=== PATIENT | female | born 1975 | race Caucasian/White ===

== ENCOUNTER → 2016-07-12 | Outpatient (CLI) | payer BC | LOC: FIMAGING 10:41 | PROVIDERS: ATTEND Obstetrics & Gynecology | DX: N83.01 Follicular cyst of right ovary (principal) ==

== ENCOUNTER → 2016-08-10 | Day surgery (SDC) | payer BC | END | disposition home or self-care (01) | LOC: FIMAGING 14:46 | PROVIDERS: ATTEND Radiology Diagnostic Radiology | PROC: 02HV33Z Insertion of Infusion Device into Superior Vena Cava, Percutaneous Approach (ICD-10-PCS; principal; 2016-08-10) | DX: T81.4XXA Infection following a procedure, initial encounter (principal) | CPT/HCPCS: 36569; 77001; C1751 ==

== ENCOUNTER → 2016-10-09 | Outpatient (CLI) | payer BC | LOC: FIMAGING 09:01 | PROVIDERS: ATTEND Obstetrics & Gynecology | DX: Z12.31 Encounter for screening mammogram for malignant neoplasm of breast (principal) | CPT/HCPCS: G0202 ==

== ENCOUNTER → 2017-01-03 | Outpatient (CLI) | payer BC ==
[~2017-01-03] MED LIST: IOPAMIDOL (ISOVUE-300) 100 ML BTL ONE
== END ==
LOC: FIMAGING 15:09
PROVIDERS: ATTEND Internal Medicine Infectious Disease
DX: T81.4XXA Infection following a procedure, initial encounter (principal); Z79.2 Long term (current) use of antibiotics
CPT/HCPCS: Q9967

== ENCOUNTER 2017-05-24 09:20 | Inpatient (IN) | payer BC, OTHER ==
[2017-05-24] MEDS ORDERED: NS 1,000 ML IV ONE ×2 (09:44→13:38)
--- NOTE | 2017-05-24 09:50 | EDPHY ---
H & P Stated Complaint: R sided abd pain x 2 days - Personal History LMP (Females 10-55): 22-28 Days Ago Current Tetanus/Diphtheria Vaccine: Unsure Current Tetanus Diphtheria and Acellular Pertussis (TDAP): Unsure - Medical/Surgical History Hx Asthma: No Hx Chronic Respiratory Disease: No Hx Diabetes: No Hx Cardiac Disease: No Hx Renal Disease: No Hx Cirrhosis: No Hx Alcoholism: No Hx HIV/AIDS: No Hx Splenectomy or Spleen Trauma: No Other PMH: multiple jaw sugeries with staph inf - Social History Smoking Status: Never smoked Time Seen by Provider: 05/24/17 09:29 HPI/ROS: CHIEF COMPLAINT: Right-sided Abdominal pain x2 days HISTORY OF PRESENT ILLNESS: 41-year-old female arrives via private vehicle complaining 2 days of right-sided abdominal pain, concerned over possible appendicitis. Patient has multiple medical conditions, notably in March 2015 she had 4th and athletic maxillofacial surgery by Dr Guaman, [place], [place], with sequela a of osteomyelitis, has been on multiple courses of oral and parental antibiotics. On 05/02/2017 she started herself on an older prescription of rifampin that was prescribed her some time ago for maxillofacial infection.1 week ago she was as prescribed moxifloxacin for sinus infection. She currently denies: Nausea, vomiting, diarrhea, melena, hematochezia, back or flank pain, urinary abnormality, fever, chills. Last oral intake was dinner last night REVIEW OF SYSTEMS: A ten point review of systems was performed and is negative with the exception of the items mentioned in the HPI PAST MEDICAL & SURGICAL HISTORY: Multiple maxillofacial surgeries with sequelae of osteomyelitis SOCIAL HISTORY:Nonsmoker PHYSICAL EXAM (Prior to examination, patient consented to physical exam, hands were washed and my usual and customary physical exam procedures followed) 1) GENERAL: Well-developed, well-nourished, alert and oriented. Appears to be in no acute distress. 2) HEAD: Normocephalic, atraumatic 3) HEENT: Pupils equal, round, reactive to light bilaterally. Sclera anicteric. Nasopharynx, oropharynx, clear, no lesions. 4) NECK: Full range of motion, no meningeal signs. 5) LUNGS: Clear auscultation bilaterally, no wheezes, no rhonchi, no retractions. 6) HEART: Regular rate and rhythm, no murmur, no heave, no gallop. 7) ABDOMEN: No guarding, negative McBurney's, positive Balderrama's, negative Rovsing's, negative peritoneal sign, 8) MUSCULOSKELETAL: Moving all extremities, no focal areas of tenderness, no obvious trauma. No peripheral edema or discoloration. 9) BACK: No CVA tenderness, no midline vertebral tenderness, no fluctuance, no step-off, no obvious trauma, no visual or palpable abnormality. 10) SKIN: No rash, no petechiae. 11) Psychiatric: Patient is oriented X 3, there is no agitation. DIFFERENTIAL DIAGNOSIS: My differential diagnosis includes, but is not limited to, acute appendicitis, acute cholecystitis, bowel obstruction, acute pancreatitis, ovarian torsion, ectopic , gastritis and urinary tract infection. The patient understands that this diagnosis is provisional and can never be 100% accurate. This is a partial list of diagnoses considered. These considerations are based on history, physical exam, past history and reassessment. (Genaro Oshea) Constitutional: Initial Vital Signs Temperature (C) 36.7 C 05/24/17 09:24 Heart Rate 87 05/24/17 09:24 Respiratory Rate 16 05/24/17 09:24 Blood Pressure 135/85 H 05/24/17 09:24 O2 Sat (%) 95 05/24/17 09:24 O2 Delivery Mode Room Air Allergies/Adverse Reactions: flurothane Adverse Reaction (Uncoded 05/24/17 09:22) difficult emergence/SLOW TO AWAKEN Home Medications: Medication Instructions Recorded Cholestyramine/Sucrose 05/24/17 Moxifloxacin 05/24/17 Rifampin 05/24/17 Medical Decision Making - Diagnostics Imaging Results: Imaging Impressions Abdomen Ultrasound 05/24/17 09:45 Impression: 1. Normal right upper quadrant ultrasound. 2. A dilated appendix is not visualized. If there is a high clinical concern for appendicitis then consider CT imaging as clinically directed. Findings discussed with Genaro Oshea PAC at 11:36 hour, 05/24/2017. Abdomen Ultrasound 05/24/17 09:45 Impression: 1. Normal right upper quadrant ultrasound. 2. A dilated appendix is not visualized. If there is a high clinical concern for appendicitis then consider CT imaging as clinically directed. Findings discussed with Genaro Oshea PAC at 11:36 hour, 05/24/2017. Abdomen CT 05/24/17 11:57 Impression: 1. Suspect appendicitis involving the tip of the appendix contiguous with inflammation along the posterior aspect of the ascending colon. Minimal free fluid in the pelvis. No abscess. 2. Constipation. Inflammation along the posterior aspect of the ascending colon has an atypical pattern for primary colitis. Findings discussed with Emergency Department physician assistant community director, Duke Oshea PA-C on May 24, 2017 at 1235 hours. I reviewed the case with Dr. Aaron Fagan, who agrees with the impression. Images reviewed by myself (Genaro Oshea) ED Course/Re-evaluation: I evaluated this patient with Claude. I agree with the workup. This patient may have an intra-abdominal process and we will scan her. Laboratory studies and scan are pending. She has right-sided pain in the right pericolic gutter right lower and right upper quadrant regions. No peritoneal signs. (Dami Atwood) 9:50 a.m.: Patient has focal tenderness or right upper quadrant, will obtain ultrasound, will also evaluate her appendix as she notes that this is a particular area of concern. We discussed the multiple antibiotics that she is currently taking which definitely may be the etiology of her abdominal discomfort. No diarrhea. Care of patient under supervision of secondary supervising physician Dr Atwood . 11:55 a.m.: Re-evaluation patient, discussed her imaging results showing no visualized appendix. She is tender to palpation right side of her abdomen. We discussed options including CT imaging now or recheck in [address] imaging now. Indications risks benefits including, but not limited to, IV contrast nephropathy, radiation exposure, financial cost, discussed with patient and she verbalizes understanding and acceptance. 12:55 p.m.: Discussed case with Dr. Dami Atwood in the ER. Patient noted to have a non normal CT findings . 1:07 p.m.: Phone consultation with Dr. Casarez who will consult 1:40 p.m.: Dr. Casarez has consulted, feels the patient's symptoms are less than likely secondary to acute appendicitis. Recommended admission to hospitalist with ID consult. Dr Dami Toledo will consult as the patient has an existing relationship with [facility] for ongoing maxillofacial issues 1:45 p.m.: Consultation with hospitalist Adriana, admit to ([facility]) - Data Points Laboratory Results: Laboratory Results 05/24/17 09:48 05/24/17 09:48 05/24/17 05/24/17 05/24/17 09:48 09:48 09:48 WBC RBC Hgb Hct MCV MCH MCHC RDW Plt Count MPV Neut % (Auto) Lymph % (Auto) [place] % (Auto) Eos % (Auto) Baso % (Auto) Nucleat RBC Rel Count Absolute Neuts (auto) Absolute Lymphs (auto) Absolute Monos (auto) Absolute Eos (auto) Absolute Basos (auto) Absolute Nucleated RBC Immature Gran % Immature Gran # Sodium 143 mEq/L mEq/L (135-145) Potassium 3.8 mEq/L mEq/L (3.5-5.2) Chloride 103 mEq/L mEq/L (97-110) Carbon Dioxide 27 mEq/l mEq/l (22-31) Anion Gap 13 mEq/L mEq/L (8-16) BUN 8 mg/dL mg/dL (7-23) Creatinine 0.6 mg/dL mg/dL (0.6-1.0) Estimated GFR > 60 Glucose 87 mg/dL mg/dL (70-100) Calcium 9.0 mg/dL mg/dL (8.5-10.4) Total Bilirubin 0.5 mg/dL mg/dL (0.1-1.4) Conjugated Bilirubin 0.2 mg/dL mg/dL (0.0-0.5) Unconjugated Bilirubin 0.3 mg/dL mg/dL (0.0-1.1) AST 40 IU/L IU/L (14-46) ALT 54 IU/L H IU/L (9-52) Alkaline Phosphatase 59 IU/L IU/L (38-126) Total Protein 7.1 g/dL g/dL (6.3-8.2) Albumin 4.3 g/dL g/dL (3.5-5.0) Lipase 140 IU/L IU/L (23-300) Beta HCG, Qual NEGATIVE Urine Color YELLOW Urine Appearance HAZY Urine pH 5.0 (5.0-7.5) Ur Specific [place] 1.019 (1.002-1.030) Urine Protein NEGATIVE (NEGATIVE) Urine Ketones TRACE H (NEGATIVE) Urine Blood NEGATIVE (NEGATIVE) Urine Nitrate NEGATIVE (NEGATIVE) Urine Bilirubin NEGATIVE (NEGATIVE) Urine Urobilinogen NEGATIVE EU EU (0.2-1.0) Ur Leukocyte Esterase NEGATIVE (NEGATIVE) Urine RBC 3-5 /hpf H /hpf (0-3) Urine WBC 1-3 /hpf /hpf (0-3) Ur Epithelial Cells 2+ /lpf H /lpf (NONE-1+) Urine Mucus 2+ /lpf H /lpf (NONE-1+) Urine Glucose NEGATIVE (NEGATIVE) 05/24/17 09:48 WBC 5.88 10^3/uL 10^3/uL (3.80-9.50) RBC 4.91 10^6/uL 10^6/uL (4.18-5.33) Hgb 14.3 g/dL g/dL (12.6-16.3) Hct 41.1 % % (38.0-47.0) MCV 83.7 fL fL (81.5-99.8) MCH 29.1 pg pg (27.9-34.1) MCHC 34.8 g/dL g/dL (32.4-36.7) RDW 12.7 % % (11.5-15.2) Plt Count 182 10^3/uL 10^3/uL (150-400) MPV 10.1 fL fL (8.7-11.7) Neut % (Auto) 62.7 % % (39.3-74.2) Lymph % (Auto) 26.0 % % (15.0-45.0) [place] % (Auto) 10.0 % % (4.5-13.0) Eos % (Auto) 0.9 % % (0.6-7.6) Baso % (Auto) 0.2 % L % (0.3-1.7) Nucleat RBC Rel Count 0.0 % % (0.0-0.2) Absolute Neuts (auto) 3.69 10^3/uL 10^3/uL (1.70-6.50) Absolute Lymphs (auto) 1.53 10^3/uL 10^3/uL (1.00-3.00) Absolute Monos (auto) 0.59 10^3/uL 10^3/uL (0.30-0.80) Absolute Eos (auto) 0.05 10^3/uL 10^3/uL (0.03-0.40) Absolute Basos (auto) 0.01 10^3/uL L 10^3/uL (0.02-0.10) Absolute Nucleated RBC 0.00 10^3/uL 10^3/uL (0-0.01) Immature Gran % 0.2 % % (0.0-1.1) Immature Gran # 0.01 10^3/uL 10^3/uL (0.00-0.10) Sodium Potassium Chloride Carbon Dioxide Anion Gap BUN Creatinine Estimated GFR Glucose Calcium Total Bilirubin Conjugated Bilirubin Unconjugated Bilirubin AST ALT Alkaline Phosphatase Total Protein Albumin Lipase Beta HCG, Qual Urine Color Urine Appearance Urine pH Ur Specific [place] Urine Protein Urine Ketones Urine Blood Urine Nitrate Urine Bilirubin Urine Urobilinogen Ur Leukocyte Esterase Urine RBC Urine WBC Ur Epithelial Cells Urine Mucus Urine Glucose Medications Given: Discontinued Medications Sodium Chloride (Ns) 1,000 mls @ 0 mls/hr IV EDNOW ONE; Wide Open PRN Reason: Protocol Stop: 05/24/17 09:45 Last Admin: 05/24/17 10:05 Dose: 1,000 mls Departure - Departure Referrals: Loli Live MD [Primary Care Provider] - As per Instructions
[2017-05-24 10:05] LABS: PLATELET COUNT 182 10^3/uL (150-400)
[2017-05-24] MEDS ORDERED: IOPAMIDOL (ISOVUE-300) 100 ML BTL ONE (12:05)
--- NOTE | 2017-05-24 13:49 | PDCONSULT ---
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 Hx of multiple courses of antibiotics over the past 2 years for maxillo-facial infections related to dental surgery. She recently completed courses of Rifampin, Moxifloxicillin and Amoxicillin. She denies fever, chills, nausea/ emesis/diarrhea. She is hungry now, though has had a supressed appetite in general PMH: x 3, umbilical hernia repair, LTL oral/maxillo-facial surgery all: flurothante SH: /3 children youngest is 5 FH: NC ROS: denies diarrhea, melena, hematochezia, emesis, anorexia reports mild nausea when taking Moxifloxacilin PE BP 108/76 P 83 R 12 O2 sat 97% RA T 36.5 pleasant young woman in mild distress HEENT: right anterior maxillary/facial swelling and tenderness, no adenopathy, no JVD lungs: clear CVS: RRR abd: soft, + BS, mild percussion tenderness RLQ, no guarding/rebound, Rovsing's negative tender right lateral mid abdomen/flank with mild guarding pelvic/rectal not performed wbc 5.8 Hgb 14.3 Hct 41.1 Plat 182 Chem panel wnl except ALT (54) CT reviewed: fluid and edema adjacent to the ascending colon, appendix without appreciable inflammatory changes no free air, moderate fecal loading Imp: abdominal pain unclear etiology/pericolonic edema and fluid complex history with prolonged intermittent abx use for oral maxillo-facial infection following dental surgery right maxillary/facial swelling Rec: admit for observation and serial exam/discussed holding antibiotics with Dr. Toledo consider ENT consult if febrile or rising wbc/worsening abd tenderness discussed possible need for laparoscopy/appendectomy Marylou Casarez MD, FACS
--- NOTE | 2017-05-24 14:45 | PCMIDPN ---
Assessment/Plan: Assessment: 41-year-old Female well known to our service. 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 She has been on long-term amoxicillin. Recently changed to oral moxifloxacin but has discontinued this treatment with the onset of systemic discomfort and pain along with right flank and right lower quadrant pain. Evaluation show some ascending colon wall thickening and surrounding fluid. Not felt to be appendicitis related. At this point we will observe. She appears nontoxic. She is hungry and passing stool normally. No diarrhea. Plan: 1. Follow clinical course. 2. No empiric antibiotics at present. 05/24/17 14:41 Subjective: Patient presented to the emergency room with right lower quadrant discomfort with instructions to follow for appendicitis. She is nontoxic but has general malaise complaints over the last week. Objective: No ongoing antibiotics. Vital Signs Temp Pulse Resp BP Pulse Ox 36.5 C 83 12 108/76 97 05/24/17 12:00 05/24/17 12:00 05/24/17 12:00 05/24/17 12:00 05/24/17 12:00 - Physical Exam General Appearance: WD/WN, alert, no apparent distress, non-toxic Respiratory: lungs clear, normal breath sounds, No respiratory distress Cardiac/Chest: regular rate, rhythm, No tachycardia Abdomen: soft, No non-tender (Mild tenderness to deep palpation in the right lower quadrant. No rebound.), No mass Skin: normal color, warm/dry, No rash Neuro/Psych: alert, normal mood/affect, oriented x 3
[2017-05-24] MEDS ORDERED: ONDANSETRON 4 MG/2 ML VIAL IVP PRN (14:57)
[2017-05-24] MEDS ORDERED: ACETAMINOPHEN 325 MG TAB PO PRN (14:57)
[2017-05-24] MEDS ORDERED: ONDANSETRON DISINTEGRATING 4 MG TAB PO PRN (14:57)
[2017-05-24] MEDS ORDERED: D5W 1/2 NS 1,000 ML IV SCH (15:00)
--- NOTE | 2017-05-24 15:47 | PDGENHP ---
History and Physical - Chief Complaint RLQ abd pain - History of Present Illness 41-year-old female complaining 2 days of right-sided abdominal pain, concerned for possible appendicitis. She has a long hx of complicated sinusitis. In March 2015 she had 4th and athletic maxillofacial surgery by Dr Guaman, [place], [place], with sequela a of osteomyelitis, has been on multiple courses of oral and parental antibiotics. On 05/02/2017 she started herself on an older prescription of rifampin that was prescribed her some time ago for maxillofacial infection.1 week ago she was as prescribed moxifloxacin for sinus infection. Her abd CT was concerning for appendicitis. She has been seen by Dr. Casarez who suspects that this is not appendicitis. Since arriving to the E.D., she feels better. Even asked to go home. She denies Nausea, vomiting, diarrhea, melena, hematochezia, back or flank pain, urinary abnormality, fever, chills. 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[employer]: [place] History Information - Allergies/Home Medication List Allergies/Adverse Reactions: flurothane Adverse Reaction (Uncoded 05/24/17 09:22) difficult emergence/SLOW TO AWAKEN Home Medications: Cholestyramine (with Sugar) [Cholestyramine Packet] 4 gm PO TID 05/24/17 [Last Taken 05/23/17] Herbals/Supplements -Info Only 1 each PO AD 05/24/17 [Last Taken Unknown] Moxifloxacin [Avelox 400 mg (*)] 400 mg PO DAILY 05/24/17 [Last Taken 05/23/17] Rifampin [Rifadin 300mg (*)] 600 mg PO DAILY 05/24/17 [Last Taken 05/23/17] Vip Compounded Nasal [place] 2 spray EACHNARE QID 05/24/17 [Last Taken 05/24/17] I have personally reviewed and updated: medical history, social history, surgical history - Social History Smoking Status: Never smoked Review of Systems Review of Systems: ROS: 10pt was reviewed & negative except for what was stated in HPI & below Physical Exam Physical Exam: Temp Pulse Resp BP Pulse Ox 36.5 C 83 12 108/76 97 05/24/17 12:00 05/24/17 12:00 05/24/17 12:00 05/24/17 12:00 05/24/17 12:00 Constitutional: no apparent distress, appears nourished Eyes: PERRL, EOMI Ears, Nose, Mouth, Throat: moist mucous membranes, hearing normal Cardiovascular: regular rate and rhythym, no murmur, rub, or gallop, No JVD, No edema Respiratory: no respiratory distress, no rales or rhonchi Gastrointestinal: normoactive bowel sounds, tenderness (RLQ tenderness to palpation), distension (mild distention), No ascites, No loja's sign, No guarding, No rebound Genitourinary: no bladder fullness Skin: warm, normal color Musculoskeletal: full muscle strength, no muscle tenderness Neurologic: AAOx3 Psychiatric: interacting appropriately, not anxious, not encephalopathic, thought process linear Lymph, Heme, Immunologic: No petechiae Lab Data & Imaging Review 05/24/17 09:48 05/24/17 09:48 WBC 5.88 10^3/uL (3.80-9.50) 05/24/17 09:48 RBC 4.91 10^6/uL (4.18-5.33) 05/24/17 09:48 Hgb 14.3 g/dL (12.6-16.3) 05/24/17 09:48 Hct 41.1 % (38.0-47.0) 05/24/17 09:48 MCV 83.7 fL (81.5-99.8) 05/24/17 09:48 MCH 29.1 pg (27.9-34.1) 05/24/17 09:48 MCHC 34.8 g/dL (32.4-36.7) 05/24/17 09:48 RDW 12.7 % (11.5-15.2) 05/24/17 09:48 Plt Count 182 10^3/uL (150-400) 05/24/17 09:48 MPV 10.1 fL (8.7-11.7) 05/24/17 09:48 Neut % (Auto) 62.7 % (39.3-74.2) 05/24/17 09:48 Lymph % (Auto) 26.0 % (15.0-45.0) 05/24/17 09:48 Major % (Auto) 10.0 % (4.5-13.0) 05/24/17 09:48 Eos % (Auto) 0.9 % (0.6-7.6) 05/24/17 09:48 Baso % (Auto) 0.2 % (0.3-1.7) L 05/24/17 09:48 Nucleat RBC Rel Count 0.0 % (0.0-0.2) 05/24/17 09:48 Absolute Neuts (auto) 3.69 10^3/uL (1.70-6.50) 05/24/17 09:48 Absolute Lymphs (auto) 1.53 10^3/uL (1.00-3.00) 05/24/17 09:48 Absolute Monos (auto) 0.59 10^3/uL (0.30-0.80) 05/24/17 09:48 Absolute Eos (auto) 0.05 10^3/uL (0.03-0.40) 05/24/17 09:48 Absolute Basos (auto) 0.01 10^3/uL (0.02-0.10) L 05/24/17 09:48 Absolute Nucleated RBC 0.00 10^3/uL (0-0.01) 05/24/17 09:48 Immature Gran % 0.2 % (0.0-1.1) 05/24/17 09:48 Immature Gran # 0.01 10^3/uL (0.00-0.10) 05/24/17 09:48 Sodium 143 mEq/L (135-145) 05/24/17 09:48 Potassium 3.8 mEq/L (3.5-5.2) 05/24/17 09:48 Chloride 103 mEq/L (97-110) 05/24/17 09:48 Carbon Dioxide 27 mEq/l (22-31) 05/24/17 09:48 Anion Gap 13 mEq/L (8-16) 05/24/17 09:48 BUN 8 mg/dL (7-23) 05/24/17 09:48 Creatinine 0.6 mg/dL (0.6-1.0) 05/24/17 09:48 Estimated GFR > 60 05/24/17 09:48 Glucose 87 mg/dL (70-100) 05/24/17 09:48 Calcium 9.0 mg/dL (8.5-10.4) 05/24/17 09:48 Total Bilirubin 0.5 mg/dL (0.1-1.4) 05/24/17 09:48 Conjugated Bilirubin 0.2 mg/dL (0.0-0.5) 05/24/17 09:48 Unconjugated Bilirubin 0.3 mg/dL (0.0-1.1) 05/24/17 09:48 AST 40 IU/L (14-46) 05/24/17 09:48 ALT 54 IU/L (9-52) H 05/24/17 09:48 Alkaline Phosphatase 59 IU/L (38-126) 05/24/17 09:48 Creatine Kinase 43 IU/L (0-156) 05/24/17 09:48 Total Protein 7.1 g/dL (6.3-8.2) 05/24/17 09:48 Albumin 4.3 g/dL (3.5-5.0) 05/24/17 09:48 Lipase 140 IU/L (23-300) 05/24/17 09:48 Beta HCG, Qual NEGATIVE 05/24/17 09:48 Urine Color YELLOW 05/24/17 09:48 Urine Appearance HAZY 05/24/17 09:48 Urine pH 5.0 (5.0-7.5) 05/24/17 09:48 Ur Specific [place] 1.019 (1.002-1.030) 05/24/17 09:48 Urine Protein NEGATIVE (NEGATIVE) 05/24/17 09:48 Urine Ketones TRACE (NEGATIVE) H 05/24/17 09:48 Urine Blood NEGATIVE (NEGATIVE) 05/24/17 09:48 Urine Nitrate NEGATIVE (NEGATIVE) 05/24/17 09:48 Urine Bilirubin NEGATIVE (NEGATIVE) 05/24/17 09:48 Urine Urobilinogen NEGATIVE EU (0.2-1.0) 05/24/17 09:48 Ur Leukocyte Esterase NEGATIVE (NEGATIVE) 05/24/17 09:48 Urine RBC 3-5 /hpf (0-3) H 05/24/17 09:48 Urine WBC 1-3 /hpf (0-3) 05/24/17 09:48 Ur Epithelial Cells 2+ /lpf (NONE-1+) H 05/24/17 09:48 Urine Mucus 2+ /lpf (NONE-1+) H 05/24/17 09:48 Urine Glucose NEGATIVE (NEGATIVE) 05/24/17 09:48 Nasal Influenza A PCR NEGATIVE FOR FLU A (NEGATIVE) 05/24/17 13:53 Nasal Influenza B PCR NEGATIVE FOR FLU B (NEGATIVE) 05/24/17 13:53 Assessment & Plan Assessment: #Abd pain with concerns for appendicitis #?Colitis, no diarrhea #hx of sinusitis with recent surgery and prolonged antibiotic exposure Plan: -observation -CLD -Surgery reccs -ID reccs -Hold off on any abx for now -IVF -Pain mgmt -SCD's -Full code -Home meds as appropriate
[2017-05-24] MEDS: POTASSIUM Cl (KCl) 20 MEQ in 1/2 NS 1,000 ML IV SCH (17:12)
[2017-05-24] MEDS: CHOLESTYRAMINE/SUCROSE 4 GM PKT PO SCH ×2 (17:16→22:14)
[2017-05-24] MEDS: [UNRECOGNIZED DRUG - OTHER] EACHNARE SCH ×2 (18:13→22:44)
[2017-05-24 18:28] LABS: PLATELET COUNT 174 10^3/uL (150-400)
--- NOTE | 2017-05-24 20:01 | SOAPPROG ---
Downtime Inpatient MD Late Entry SOAP Note: Shireen feels about the same although reports increased pain and swelling in her right maxilla. she remains afebrile and was given a clear liquid diet and was able to hold down two cups of broth exam: +BS, mild right lateral abdominal tenderness with mild guarding/no rebound , no tenderness over McBurney's point, neg Rovsing's visible swelling right anterior maxillary region repeat wbc 4.8 Imp: abd pain unclear etiology/pericolonic fluid not specifically diagnostic of appendicitis, though this cannot be ruled out Hx complex infection right maxillary with worsening symptoms Rec: continue NPO/serial exam repeat facial CT consider GI consult for possible colonoscopy Marylou Casarez MD, FACS
[2017-05-24] MEDS ORDERED: IOPAMIDOL (ISOVUE 370) 100 ML BTL IV ONE (22:04)
[2017-05-25 06:09] LABS: PLATELET COUNT 154 10^3/uL (150-400)
[2017-05-25] MEDS: POTASSIUM Cl (KCl) 20 MEQ in 1/2 NS 1,000 ML IV SCH (06:19)
[2017-05-25] MEDS: [UNRECOGNIZED DRUG - OTHER] EACHNARE SCH ×4 (06:53→22:16)
--- NOTE | 2017-05-25 12:32 | PCMIDPN ---
Assessment/Plan: 1. Probable acute tip appendicitis: After over 45 min conversation with the patient, reviewing CT scans, and discussion with Dr. Ferris, I do feel that the patient should have her appendix out laparoscopically. I went back in the room and had this conversation with her. She agrees and would like her appendix out. For now, will start her on intravenous ertapenem, given that she tolerated this in the past. Upon discharge, we will revisit antibiotic conversation--she will need antibiotics not for her appendicitis per se, but for her subacute right maxillary sinusitis. Perhaps she can be discharged on something like PO levofloxacin and metronidazole. She did not tolerate moxifloxacin. Of note, my colleague, Dr. Toledo, who knows this patient will will be back on Saturday which is likely when the patient will be discharged. 2. Subacute right maxillary sinusitis: Start ertapenem as outlined above. Strongly discouraged patient from taking rifampin for the reasons outlined by Dr. Jones in his outpatient notes. Expressed to the patient that this is not recommended therapy for sinusitis, and resistance can developed quickly with rifampin monotherapy. She expressed understanding and will stop taking this. Over 90 min in total was spent with this patient, speaking with her and working with other providers involved with her care, and reviewing scans. Subjective: Long conversation with patient today. [facility] [address] notes reviewed. The patient was recently seen by my colleague, Dr. Jones on May 17 for right maxillary sinusitis. She was started on moxifloxacin, which he took for approximately 1 week. Patient tells me she did not feel well on moxifloxacin and is concerned that this medication could have precipitated her right flank and abdominal pain. She also admits to taking rifampin as well, even though Dr. Jones recommended that she stop taking this. She reports that this past she developed some right lower abdominal discomfort along with anorexia. No nausea vomiting or fevers. I reviewed her abdominal CT scan with Dr. Glover. It is concerning for tip appendicitis. Also of note, classic symptoms and signs of appendicitis will likely not be present given that her appendix is fairly high up in the abdomen. She also has some fluid tracking along the pelvis superiorly with ascending colitis. This colitis is likely from associated appendiceal inflammation and not from a primary colitis per se. Patient is very concerned about her acute sinusitis on the right. She continues to have some discomfort here. Regarding her abdominal pain, she continues to have this , but describes it as right flank pain. She continues to be anorectic. Objective: Antibiotics have been held Afebrile Vital Signs Temp Pulse Resp BP Pulse Ox 36.6 C 67 17 95/63 L 97 05/25/17 08:00 05/25/17 08:00 05/25/17 08:00 05/25/17 08:00 05/25/17 08:00 Laboratory Results 05/25/17 06:00 05/25/17 06:00 05/24/17 05/25/17 05/26/17 05:59 05:59 05:59 Intake Total 1974 Balance 1975 ESR 14 MM/HR (0-20) 05/25/17 06:00 - Physical Exam General Appearance: alert, no apparent distress EENT: other (Visible right-sided maxillary swelling, with tenderness to percussion. Oropharynx without visible abnormality. She is missing several teeth on the right upper area.) Respiratory: lungs clear Cardiac/Chest: regular rate, rhythm, No systolic murmur Abdomen: other (Hypoactive bowel sounds. Nondistended. Discomfort and tenderness to palpation right lower mid quadrant on the right.) Skin: No rash ICD10 Worksheet Patient Problems: Problems Problem Status Onset Appendicitis Acute
--- NOTE | 2017-05-25 13:13 | HOSPPROG ---
Hospitalist Progress Note Assessment/Plan: Patient is a 41-year-old female who has been complaining of right-sided abdominal pain. There was concern that she may have appendicitis. This was noted by the CT scan. She has a long history of complicated sinusitis and history of osteomyelitis. Today is my 1st encounter with the patient. Chart reviewed. * probable acute tip appendicitis -started on ertapenem -to OR today -will order IV fluids -recheck labs in a.m. * subacute right maxillary sinusitis -recently treated w moxifloxacin -see Dr Wilkins's notes *Plan: OR today to get appendix removed, she will require another midnight stay for this which will make her IP stay. Subjective: Shireen has some ruq pain that has improved, she is mainly concerned aobut sinusitis. Objective: Vital Signs Temp Pulse Resp BP Pulse Ox 36.7 C 86 18 127/74 H 94 05/25/17 12:00 05/25/17 12:00 05/25/17 12:00 05/25/17 12:00 05/25/17 12:00 Laboratory Results 05/25/17 06:00 05/25/17 06:00 05/24/17 05/25/17 05/26/17 05:59 05:59 05:59 Intake Total 1975 Balance 1974 - Physical Exam Constitutional: no apparent distress, uncomfortable Eyes: PERRL Ears, Nose, Mouth, Throat: hearing normal Cardiovascular: regular rate and rhythym Respiratory: no respiratory distress Skin: warm Musculoskeletal: full muscle strength Neurologic: AAOx3 Psychiatric: interacting appropriately ICD10 Worksheet Patient Problems: Problems Problem Status Onset Appendicitis Acute
--- NOTE | 2017-05-25 13:22 | SOAPPROG ---
SOAP Progress Note Assessment/Plan: Assessment: Plan: Subjective: vss, af ruq and flank pain. ct reviewed- appears to be retrocecal appendicitis. discussed options of antibiotic tx versus surgery- pt would lke to proceed with an appendictomy. rks of infection, need for open versus laparoscopic apprach, etc discussed. Objective: Vital Signs Temp Pulse Resp BP Pulse Ox 98 C H 84 17 127/74 H 94 05/25/17 13:07 05/25/17 13:07 05/25/17 13:07 05/25/17 13:07 05/25/17 12:00 Laboratory Results 05/25/17 06:00 05/25/17 06:00 05/24/17 05/25/17 05/26/17 05:59 05:59 05:59 Intake Total 1975 Balance 1975 ICD10 Worksheet Patient Problems: Problems Problem Status Onset Appendicitis Acute - ICD10 Problem Qualifiers (1) Appendicitis
[2017-05-25] MEDS ORDERED: PROPOFOL 200 MG/20 ML VIAL ONE (13:26)
[2017-05-25] MEDS ORDERED: PROPOFOL/EMULSION 500 MG/50 ML BOTTLE IV ONE ×2 (13:26→14:28)
[2017-05-25] MEDS ORDERED: fentaNYL 100 MCG/2 ML INJ ONE ×3 (13:27→15:18)
[2017-05-25] MEDS ORDERED: MIDAZOLAM 2 MG/2 ML VIAL ONE (13:46)
[2017-05-25] MEDS ORDERED: MIDAZOLAM 2 MG/2 ML VIAL IVP ONE (13:50)
--- NOTE | 2017-05-25 13:54 | PDANEPAE ---
ANE History of Present Illness 41 year old female presents for [facility]. 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 Also with long history of jaw (mandible) surgeries, limited oral opening, loose teeth. ANE Past Medical History - Cardiovascular History Hx Hypertension: No Hx Arrhythmias: No Hx Chest Pain: No Hx Coronary Artery / Peripheral Vascular Disease: No Hx CHF / Valvular Disease: No Hx Palpitations: No - Pulmonary History Hx COPD: No Hx Asthma/Reactive Airway Disease: No Hx Recent Upper Respiratory Infection: No Hx Oxygen in Use at Home: No Hx Sleep Apnea: No Sleep Apnea Screening Result - Last Documented: Negative - Endocrine History Hx Diabetes: No Hypothyroid: No Hyperthyroid: No Obesity: no - Renal History Hx Renal Disorders: No - Liver History Hx Hepatic Disorders: No - Neurological & Psychiatric Hx Hx Neurological and Psychiatric Disorders: No - Cancer History Hx Cancer: No - Congenital Disorder History Hx Congenital Disorders: No - GI History GERD: no - Chronic Pain History Chronic Pain: Yes (R jaw) ANE Review of Systems Review of systems is: negative Review of Systems: - Exercise capacity Exercise capacity: >=4 METS ANE Patient History - Allergies Allergies/Adverse Reactions: Codiene Allergy (Uncoded 05/25/17 13:24) flurothane Adverse Reaction (Uncoded 05/24/17 09:22) difficult emergence/SLOW TO AWAKEN - Home Medications Home medications: home medication list seen and reviewed Home Medications: Cholestyramine (with Sugar) [Cholestyramine Packet] 4 gm PO TID 05/24/17 [Last Taken 05/23/17] Herbals/Supplements -Info Only 1 each PO AD 05/24/17 [Last Taken Unknown] Moxifloxacin [Avelox 400 mg (*)] 400 mg PO DAILY 05/24/17 [Last Taken 05/23/17] Rifampin [Rifadin 300mg (*)] 600 mg PO DAILY 05/24/17 [Last Taken 05/23/17] Vip Compounded Nasal [place] 2 spray EACHNARE QID 05/24/17 [Last Taken 05/24/17] - NPO status NPO Status: no food or drink >8 hours NPO Since - Liquids (Date): 05/24/17 NPO Since - Liquids (Time): 18:00 - Anes Hx Anes Hx: no prior problems - Smoking Hx Smoking Status: Never smoked Marijuana use: No - Alcohol Use Alcohol Use: Rarely - Family Anes Hx Family Hx Anesthesia Complications: Denies family history, but has a personal childhood history of slow to emerge and irregular cardiac function with flurothane. ANE Labs/Vital Signs - Labs Result Diagrams: 05/25/17 06:00 05/25/17 06:00 - Vital Signs Vital Signs: reviewed preoperatively; see RN documention for details Blood Pressure: 127/74 Heart Rate: 84 Respiratory Rate: 17 O2 Sat (%): 94 Height: 172.72 cm Weight: 58.06 kg ANE Physical Exam - Airway Neck exam: decreased ROM Mallampati Score: Class 4 Mouth exam: small mouth opening Mouth image: 1 - Missing tooth, recessed gum line, recent bone graft. - Pulmonary Pulmonary: no respiratory distress - Cardiovascular Cardiovascular: regular rate and rhythym - ASA Status ASA Status: II ANE Anesthesia Plan Anesthesia Plan: general endotracheal anesthesia Specialized Airway: video laryngoscope Total IV Anesthesia: Yes
[2017-05-25] MEDS ORDERED: NS 1,000 ML IV SCH (14:00)
[2017-05-25] MEDS ORDERED: ONDANSETRON 4 MG/2 ML VIAL ONE (14:14)
[2017-05-25] MEDS ORDERED: DEXAMETHASONE 4 MG/ML VIAL ONE (14:14)
[2017-05-25] MEDS ORDERED: BUPIVACAINE/EPI 0.5% 30 ML SDV ONE (14:27)
[2017-05-25] MEDS ORDERED: HYDROmorphONE/DILAUDID 1 MG/ML INJ IVP PRN (14:40)
[2017-05-25] MEDS ORDERED: NALOXONE HCL 0.4 MG/ML INJ IVP PRN (14:40)
[2017-05-25] MEDS ORDERED: LR 500 ML IV PRN (14:40)
[2017-05-25] MEDS ORDERED: epHEDrine SULFATE 10 MG/ML SYR IVP PRN (14:40)
[2017-05-25] MEDS ORDERED: ONDANSETRON 4 MG/2 ML VIAL IVP PRN (14:40)
[2017-05-25] MEDS ORDERED: PHENYLEPHRINE HCL 100 MCG/ML SYR IVP PRN (14:40)
--- NOTE | 2017-05-25 14:40 | PDMN ---
Medical Necessity Medical necessity: C/M review: Patient meets INPT criteria under [facility] [place] Gastroenterology GRG (Acute appendicitis): Acute and persistent right sided abdominal pain determined to be probable acute tip appendicitis on 05/25/2017 (04/2018 CT showed possible tip appendicitis), subacute right maxillary sinusitis on CT requiring 05/25/2017 surgery - laparoscopic appendectomy and ongoing IV Ertapenem QD, IV fluids, comorbid long history of complex sinusitis and osteomyelitis. MAP CLERK anticipates > 2 MN LOS for ongoing med nec for eval and TX of above.
--- NOTE | 2017-05-25 15:06 | POSTOPPROG ---
Post Op Note Date of Operation: 05/25/17 Surgeon: Dae Ferris Anesthesia: GET(General Endotracheal) Pre-op Diagnosis: retrocecal appendicitis Post-op Diagnosis: smae Indication: same Procedure: lapa roscopic appendictomy Findings: SAME Inf/Abcess present in the surg proc area at time of surgery?: No EBL: Minimal
[2017-05-25] MEDS: fentaNYL 100 MCG/2 ML INJ IVP PRN ×3 (15:22→15:48)
--- NOTE | 2017-05-25 15:33 | GOP ---
[f rep st] OPERATIVE REPORT DATE OF OPERATION: SURGEON: Dae Ferris MD PREOPERATIVE DIAGNOSIS: Retrocecal appendicitis. POSTOPERATIVE DIAGNOSIS: Retrocecal appendicitis. PROCEDURE PERFORMED: FINDINGS: INDICATIONS: A 41-year-old female with right upper quadrant pain. A CT scan showing a retrocecal ap pendix extending cephalad up toward the liver. DESCRIPTION OF PROCEDURE: OPERATION: Laparoscopic appendectomy. SURGEON: Dae Ferris MD. PROCEDURE: General anesthesia, the abdomen scrubbed with ChloraPrep, draped in the usual sterile fas hion. The patient had an old laparoscopy scar at the umbilicus, which was opened, and a Veress needl e used to achieve a pneumoperitoneum. A 12 mm port was placed, and two 5 mm ports placed elsewhere. The appendix was quite retrocecal, but the base of the appendix and the cecum was identified, appear ed to be normal. It was transected with a surgical stapler, and then the appendix removed retrograde chasing it superiorly until the entire appendix was removed. It was 9 mm in width, and there was so me inflammation, but no exudate around it. There was a small amount of free fluid in the right gutte r and the pelvis. All fluid was aspirated from the abdomen. The appendix retrieved in an Endopouch, and then the fascial defect at the umbilicus closed with 0-Vicryl. Skin with 4-0 Monocryl and Molino padgett. The patient tolerated the procedure well. /[id number]/MODL
[2017-05-25] MEDS: ERTAPENEM 1 GM VIAL IVP SCH (15:47)
--- NOTE | 2017-05-25 15:56 | POSTANESTH ---
Post Anesthetic Evaluation Cardiovascular Status: Normal, Stable, Similar to Pre-Op Cond Respiratory Status: Normal, Stable, Similar to Pre-op Cond. Level of Consciousness/Mental Status: Can Participate in Eval, Alert and Oriented Pain Control: Adequate, Prn Tx Ordered Nausea/Vomiting Control: Adequate, Prn Tx Ordered Complications Possibly Related to Anesthesia: None Noted
[2017-05-25] MEDS: CHOLESTYRAMINE/SUCROSE 4 GM PKT PO SCH ×3 (16:26→22:15)
[2017-05-25] MEDS: oxyCODONE IR 5 MG TAB PO PRN ×3 (16:37→22:20)
[2017-05-26] MEDS: oxyCODONE IR 5 MG TAB PO PRN ×4 (01:21→13:32)
[2017-05-26] MEDS: [UNRECOGNIZED DRUG - OTHER] EACHNARE SCH ×3 (07:05→20:33)
--- NOTE | 2017-05-26 07:09 | SOAPPROG ---
SOAP Progress Note Assessment/Plan: Assessment: Plan: Subjective: abd soft. ok to dc today folloow up 1-[address] saunders Objective: Vital Signs Temp Pulse Resp BP Pulse Ox 37.1 C 72 16 102/68 95 05/26/17 04:30 05/26/17 04:30 05/26/17 04:30 05/26/17 04:30 05/26/17 04:30 05/25/17 05/26/17 05/27/17 05:59 05:59 05:59 Intake Total 3260 Output Total 400 Balance 2860 ICD10 Worksheet Patient Problems: Problems Problem Status Onset Appendicitis Acute - ICD10 Problem Qualifiers (1) Appendicitis
[2017-05-26] MEDS: CHOLESTYRAMINE/SUCROSE 4 GM PKT PO SCH ×3 (08:30→17:48)
--- NOTE | 2017-05-26 08:46 | HOSPPROG ---
Hospitalist Progress Note Assessment/Plan: Patient is a 41-year-old female who has been complaining of right-sided abdominal pain. There was concern that she may have appendicitis. This was noted by the CT scan. She has a long history of complicated sinusitis and history of osteomyelitis. * probable acute tip appendicitis s/p appendectomy -on ertapenem -doing well * subacute right maxillary sinusitis -recently treated w moxifloxacin -see Dr Wilkins's notes *Plan: will dc home if ok with Dr Wilkins Subjective: noy is feeling well today. Objective: Vital Signs Temp Pulse Resp BP Pulse Ox 37.1 C 72 16 102/68 95 05/26/17 04:30 05/26/17 04:30 05/26/17 04:30 05/26/17 04:30 05/26/17 04:30 05/25/17 05/26/17 05/27/17 05:59 05:59 05:59 Intake Total 3260 Output Total 400 Balance 2860 - Physical Exam Constitutional: no apparent distress, appears nourished, not in pain Eyes: PERRL Ears, Nose, Mouth, Throat: hearing normal Respiratory: no respiratory distress Gastrointestinal: normoactive bowel sounds Skin: warm Musculoskeletal: full muscle strength Neurologic: AAOx3 Psychiatric: interacting appropriately ICD10 Worksheet Patient Problems: Problems Problem Status Onset Appendicitis Acute
[2017-05-26] MEDS: ERTAPENEM 1 GM VIAL IVP SCH ×2 (10:54→12:14)
--- NOTE | 2017-05-26 14:30 | PCMIDPN ---
Assessment/Plan: 1. Tip appendicitis Status post laparoscopic appendectomy : Appreciate Dr. Ferris's assistance! Will keep her another day given discomfort from constipation in hopes of resolving this issue in short order. Continue ertapenem, but for #2, not for the appendicitis, per se. 2. Subacute right maxillary sinusitis: Continue ertapenem, with likely transition to oral levofloxacin and metronidazole tomorrow. Patient asked me about whether she needed intravenous antibiotics up front; explained to her excellent bioavailability with levofloxacin and metronidazole, and would use this approach 1st. Her regular infectious disease doctor, Dr. Toledo will be back tomorrow. Over 25 min spent with this patient today. 05/26/17 14:27 Subjective: Patient is very uncomfortable from constipation due to narcotics/ Postoperative state. No nausea or vomiting. Objective: Vital Signs Ertapenem 1 g IV daily day 2 T-max 37.1degrees Temp Pulse Resp BP Pulse Ox 37.1 C 72 16 102/68 95 05/26/17 04:30 05/26/17 04:30 05/26/17 04:30 05/26/17 04:30 05/26/17 04:30 05/25/17 05/26/17 05/27/17 05:59 05:59 05:59 Intake Total 3260 Output Total 400 Balance 2860 ESR 14 MM/HR (0-20) 05/25/17 06:00 - Physical Exam General Appearance: alert, other ( looks mildly uncomfortable secondary to constipation.) EENT: pharynx normal, other ( Decreased tenderness to percussion of the right Maxillary sinus.) Abdomen: other ( very small area of dusky erythema surrounding the umbilicaltrocar incision. Will ajit this with a pen. Her abdomen is slightly distended.) Skin: No rash ICD10 Worksheet Patient Problems: Problems Problem Status Onset Appendicitis Acute
[2017-05-26] MEDS ORDERED: MAGNESIUM HYDROXIDE 30 ML UDCUP PO PRN (14:53)
[2017-05-26 17:45] VITALS: RESP 16
[2017-05-27] MEDS: [UNRECOGNIZED DRUG - OTHER] EACHNARE SCH ×2 (04:02→13:59)
[2017-05-27] MEDS: CHOLESTYRAMINE/SUCROSE 4 GM PKT PO SCH ×2 (10:20→16:22)
[2017-05-27] MEDS: ERTAPENEM 1 GM VIAL IVP SCH (11:55)
[2017-05-27] MEDS ORDERED: ALTEPLASE 2 MG VIAL IVP PRN (13:01)
--- NOTE | 2017-05-27 13:04 | PDIAF ---
- Diagnosis Diagnosis: appendicitis Code Status: Full Code - Medication Management Discharge Medications: Medications to Continue on Transfer Cholestyramine (with Sugar) [Cholestyramine Packet] 4 gm PO TID 05/24/17 [Last Taken 05/23/17] Herbals/Supplements -Info Only 1 each PO AD 05/24/17 [Last Taken Unknown] Moxifloxacin [Avelox 400 mg (*)] 400 mg PO DAILY 05/24/17 [Last Taken 05/23/17] Rifampin [Rifadin 300mg (*)] 600 mg PO DAILY 05/24/17 [Last Taken 05/23/17] Vip Compounded Nasal [place] 2 spray EACHNARE QID 05/24/17 [Last Taken 05/24/17] [facility] Antibiotics: ertapenem 1 g iv q 24 hours [facility] Antibiotic Stop Date: 06/06/17 Discharge Medications: Refer to the Discharge Home Medication list for PRN reason. PICC Care - Routine: Yes - Orders Services needed: Registered Nurse Isolation Type: None - Labs/Radiology CBC w/diff Date: 05/30/17 (weekly) CMP Date: 05/30/17 (weekly) Call or Fax Lab and Imaging Results to: Dr. Dami Toledo - Follow Up Care Current Providers and Referrals: Loli Live MD [Primary Care Provider] - As per Instructions
--- NOTE | 2017-05-27 13:04 | PCMIDPN ---
Assessment/Plan: Assessment: Appendiceal tip infection. Status post appendectomy. Patient continues on ertapenem monotherapy. She also feels that this has helped her chronic intermittent right-sided maxillary sinus infection. We will continue ertapenem monotherapy for a total of 10 days from surgery. Will set her up for home IV antibiotics. Follow up in clinic in 1 week. Plan: 1. Continue ertapenem course for 10 days postop. 2. Follow up in clinic in 1 week time. Subjective: Patient is resting in her hospital bed. She feels significantly better since having her appendix removed. Has a small amount of inflammation at the umbilicus. It is decreasing in intensity of color. Objective: Ertapenem # 3 Vital Signs Temp Pulse Resp BP Pulse Ox 36.1 C 65 16 97/68 L 95 05/27/17 12:00 05/27/17 12:00 05/27/17 08:00 05/27/17 12:00 05/27/17 12:00 05/26/17 05/27/17 05/28/17 05:59 05:59 05:59 Intake Total 3260 1300 Output Total 400 Balance 2860 1300 ESR 14 MM/HR (0-20) 05/25/17 06:00 - Physical Exam General Appearance: WD/WN, alert, no apparent distress, non-toxic Respiratory: lungs clear, normal breath sounds, No respiratory distress Cardiac/Chest: regular rate, rhythm, No tachycardia Abdomen: soft, other (Mild erythema both superior and inferior to the umbilicus. No induration no fluctuance), No non-tender, No mass Skin: normal color, warm/dry, No rash Neuro/Psych: alert, normal mood/affect, oriented x 3 ICD10 Worksheet Patient Problems: Problems Problem Status Onset Appendicitis Acute
--- NOTE | 2017-05-27 13:36 | ASMTCMCOM ---
CM Note CM Note Notes: Patient chart reviewed. Order per ID, referral to [facility] for home IV infusion services. PICC to be placed. Verified address and phone number with patient, orders to [facility] via [employer]. CM to follow, Date Signed: 05/27/2017 01:36 PM Electronically Signed By:Frances Sanchez RN
--- NOTE | 2017-05-27 14:03 | HOSPPROG ---
Hospitalist Progress Note Assessment/Plan: Patient is a 41-year-old female who has been complaining of right-sided abdominal pain. There was concern that she may have appendicitis. This was noted by the CT scan. She has a long history of complicated sinusitis and history of osteomyelitis. * probable acute tip appendicitis s/p appendectomy -on ertapenem -doing well * subacute right maxillary sinusitis -recently treated w moxifloxacin -see Dr Wilkins's notes *Plan: PICC line to be placed. Reviewed her care with Dr. Toledo. Will be continued on ertapenem Subjective: shana is feeling better from surgery, concerned infection is returning to her jaw area/right side Objective: Vital Signs Temp Pulse Resp BP Pulse Ox 36.1 C 65 16 97/68 L 95 05/27/17 12:00 05/27/17 12:00 05/27/17 08:00 05/27/17 12:00 05/27/17 12:00 05/26/17 05/27/17 05/28/17 05:59 05:59 05:59 Intake Total 3260 1300 Output Total 400 Balance 2860 1300 - Physical Exam Constitutional: no apparent distress, appears nourished, not in pain Eyes: PERRL Ears, Nose, Mouth, Throat: hearing normal Cardiovascular: regular rate and rhythym Respiratory: no respiratory distress Gastrointestinal: normoactive bowel sounds Skin: warm Musculoskeletal: full muscle strength Neurologic: AAOx3 Psychiatric: interacting appropriately ICD10 Worksheet Patient Problems: Problems Problem Status Onset Appendicitis Acute
[2017-05-27] MEDS ORDERED: FLU VACC QS 2017-18 (3YR+)/PF 0.5 ML SYR (FLUARIX QUAD) IM ONE (14:52)
[2017-05-27 15:55] VITALS: BP 107/76; PULSE 61; TEMP 98.1; O2SAT 99
--- NOTE | 2017-05-27 16:40 | ASMTCMCOM ---
CM Note CM Note Notes: Picc report sent to [facility] via [email or web address]. Spoke with patient who is aware the infusion company has accepted her and will be out to set her up. There number is provided on the discharge form. CM available should other needs arise, Date Signed: 05/27/2017 04:40 PM Electronically Signed By:Frances Sanchez RN
--- NOTE | 2017-05-27 16:46 | PDIAF ---
- Diagnosis Diagnosis: appendicitis Code Status: Full Code - Medication Management Discharge Medications: Medications to Continue on Transfer Cholestyramine (with Sugar) [Cholestyramine Packet] 4 gm PO TID 05/24/17 [Last Taken 05/23/17] Herbals/Supplements -Info Only 1 each PO AD 05/24/17 [Last Taken Unknown] Vip Compounded Nasal [place] 2 spray EACHNARE QID 05/24/17 [Last Taken 05/24/17] Intermediate Antibiotics: ertapenem 1 g iv q 24 hours Intermediate Antibiotic Stop Date: 06/06/17 Discharge Medications: Refer to the Discharge Home Medication list for PRN reason. PICC Care - Routine: Yes - Orders Services needed: Registered Nurse Isolation Type: None Diet Recommendation: no restrictions on diet Diet Texture: Regular Texture Diet - Labs/Radiology CBC w/diff Date: 05/30/17 (weekly) CMP Date: 05/30/17 (weekly) Call or Fax Lab and Imaging Results to: Dr. Dami Toledo - Follow Up Care Current Providers and Referrals: Dae Ferris MD [Medical Doctor] - Loli Live MD [Primary Care Provider] - As per Instructions Dami Toledo MD [Medical Doctor] -
--- NOTE | 2017-05-27 19:18 | GDS ---
[f rep st] DISCHARGE SUMMARY DISCHARGE DIAGNOSES: 1. Acute appendicitis, status post appendectomy. 2. Subacute right maxillary sinusitis. CONSULTATIONS: 1. Dr. Dae Ferris. 2. Dr. Eliecer Casarez. 3. Dr. Dami Toledo. HISTORY: Briefly, the patient is a 41-year-old female who is complaining of right-sided abdominal pa in. The CT of her abdomen was concerning for appendicitis. She subsequently was seen by Dr. Dae Hyatt and had her appendix removed. She has also had multiple maxillofacial surgeries with sequela of osteomyelitis. Today, she will be discharged home on IV antibiotics. She was seen and evaluated by Dr. Dami Toledo, who will follow up with her in the outpatient setting. HOSPITAL COURSE: 1. Acute appendicitis, status post appendectomy. She is feeling markedly better. She is eating and drinking well. She will follow up with Dr. Ferris in 1-2 weeks. 2. Concern for infection in her right maxillary area. She will remain on IV ertapenem. She has a l schuyler and significant history with problems with this. She was further followed up with Dr. Toledo dur ing her stay. She had a CT of her face performed on admission, which showed new right maxillary sinu sitis. She has new tissue bone loss at the superomedial wall of the right maxillary sinus winding of the maxillary ostium and loss of the right uncinate process and several ethmoid bullae. It also ester ws persistent anterior hardware palate defects. Soft tissues within the defect on the right appear c ontinuous with the right maxillary sinus. However, there is no convincing evidence of an abscess. N oted she has an interval ventilation of 2 new implants with slight bony ingrowth along the superior a lveolar ridge on the right. DISCHARGE CONDITION: Stable. Blood pressure is 107/76. Heart rate is 61. Respiratory rate is 16. O2 sats on room air 99%. Temperature 36.7 Celsius. DISCHARGE MEDICATIONS: Please see the EMR. DISCHARGE INSTRUCTIONS: 1. To follow up with Dr. Ferris in 1-2 weeks. 2. Follow up with Dr. Dami Toledo in the outpatient setting. Greater than 30 minutes discharging and coordinating her care. /[id number]/MODL
== END 2017-05-27 16:45 | disposition home health service (06) | DRG 343 ==
LOC: FOB 16:29 → OBSVTOIN 05-25 13:40
PROVIDERS: ADMIT Family Medicine; ATTEND Internal Medicine
PROC: 3E01340 Introduction of Influenza Vaccine into Subcutaneous Tissue, Percutaneous Approach (ICD-10-PCS; 2017-05-25)
PROC: 0DTJ4ZZ Resection of Appendix, Percutaneous Endoscopic Approach (ICD-10-PCS; principal; 2017-05-25 13:30)
PROC: 02HV33Z Insertion of Infusion Device into Superior Vena Cava, Percutaneous Approach (ICD-10-PCS; 2017-05-27)
DX: K35.80 Unspecified acute appendicitis (principal); J32.0 Chronic maxillary sinusitis; M27.2 Inflammatory conditions of jaws; R10.31 Right lower quadrant pain; Z23 Encounter for immunization; Z79.2 Long term (current) use of antibiotics; Z96.5 Presence of tooth-root and mandibular implants
CPT/HCPCS: C1751; G0008; G0378; J1100; J1335; J2250; J2370; J2405; J2704; J3010; Q9967

== ENCOUNTER → 2017-11-23 | Outpatient (CLI) | payer OTHER | LOC: FIMAGING 14:35 | PROVIDERS: ATTEND Obstetrics & Gynecology | DX: Z12.31 Encounter for screening mammogram for malignant neoplasm of breast (principal) ==